=== PATIENT | female | born 1995 | race Caucasian/White ===

== ENCOUNTER 2019-02-21 03:19 | Emergency (ER) | payer OTHER ==
[~2019-02-21] VITALS: Ht 167.6 cm; Wt 63.5 kg
[2019-02-21] MEDS ORDERED: ZOLOFT100 MG PO (03:24)
[2019-02-21 05:00] VITALS: BP 99/57
== END 2019-02-21 05:44 | disposition home or self-care (01) ==
LOC: M.ERS 03:19
DX: F10.129 Alcohol abuse with intoxication, unspecified (principal); Y90.9 Presence of alcohol in blood, level not specified; F32.9 Major depressive disorder, single episode, unspecified